=== PATIENT | male | born 1975 | race Caucasian/White ===

== ENCOUNTER 2017-12-05 21:16 | Inpatient (IN) | payer OTHER ==
[2017-12-05] MEDS ORDERED: SOD CHLORIDE 0.9% IVPB (22:30)
[2017-12-05] MEDS ORDERED: ALBUTEROL 0.083% (NEB) 2.5 MG/3 ML AMP HHN (22:30)
[2017-12-05] MEDS ORDERED: ONDANSETRON 4 MG INJ IV (22:30)
[2017-12-05] MEDS ORDERED: ACETAMINOPHEN 500 MG TAB PO (22:30)
[2017-12-05] MEDS ORDERED: IBUPROFEN 600 MG TAB PO (22:30)
[2017-12-05] MEDS ORDERED: CEFTRIAXONE IVPB (22:30)
[2017-12-05] MEDS ORDERED: traMADol 50 MG TAB PO (22:30)
[2017-12-06] MEDS: CEFTRIAXONE 1 GM/50 ML (PMX) 50 ML IVPB ×2 (00:04→23:30)
[2017-12-06] MEDS: GUAIFENESIN/DM 5ML CUP PO ×7 (00:04→21:52)
[2017-12-06] MEDS: ALBUTEROL 0.083% (NEB) 2.5 MG/3 ML AMP HHN ×6 (01:06→20:31)
[2017-12-06] MEDS: IPRATROPIUM (NEB) 0.5 MG/2.5 ML AMP HHN ×6 (01:06→20:31)
[2017-12-06] MEDS: PANTOPRAZOLE (EC) 40 MG TAB PO (05:57)
[2017-12-06 07:22] LABS: ADD MAN DIFF? NO
[2017-12-06 07:25] LABS: BASOPHILS % 0.1 % (0.0-2.0); HEMATOCRIT 37.3 % (42.0-52.0); HEMOGLOBIN 12.5 g/dl (14.0-18.0); LYMPHOCYTES # 0.9 10^3/ul (0.8-2.9); MEAN CORPUSCULAR HEMOGLOBIN 30.3 pg (29.0-33.0); MEAN CORPUSCULAR HGB CONC 33.5 g/dl (32.0-37.0); MEAN CORPUSCULAR VOLUME 90.5 fl (82.0-101.0); MEAN PLATELET VOLUME 12.9 fl (7.4-10.4); MONOCYTE # 0.6 10^3/ul (0.3-0.9); MONOCYTES % 3.8 % (0.0-11.0); NEUTROPHIL # 13.2 10^3/ul (1.6-7.5); NEUTROPHILS % 89.4 % (39.0-77.0); PLATELET COUNT 208 10^3/UL (140-415); RED BLOOD COUNT 4.12 10^6/ul (4.70-6.10); RED CELL DISTRIBUTION WIDTH 13.2 % (11.5-14.5)
[2017-12-06 07:25] LABS: WHITE BLOOD COUNT 14.8 10^3/ul (4.8-10.8)
[2017-12-06 07:51] LABS: ALANINE AMINOTRANSFERASE 45 IU/L (13-69); ALBUMIN 3.5 g/dl (3.3-4.9); ALBUMIN/GLOBULIN RATIO 1.12; ALKALINE PHOSPHATASE 77 IU/L (42-121); ANION GAP 14 (8-16); ASPARTATE AMINO TRANSFERASE 27 IU/L (15-46); BILIRUBIN,INDIRECT 0.2 mg/dl (0-1.1); BILIRUBIN,TOTAL 0.2 mg/dl (0.2-1.3); BLOOD UREA NITROGEN 18 mg/dl (7-20); CALCIUM 8.7 mg/dl (8.4-10.2); CARBON DIOXIDE 26 mmol/L (21-31); CHLORIDE 105 mmol/L (97-110); CREATININE 0.73 mg/dl (0.61-1.24); GLUCOSE 168 mg/dl (70-220); POTASSIUM 3.7 mmol/L (3.5-5.1); SODIUM 141 mmol/L (135-144); TOTAL PROTEIN 6.6 g/dl (6.1-8.1)
[2017-12-06] MEDS: ASPIRIN 81 MG TAB PO (08:21)
[2017-12-06] MEDS: METHYLPREDNISOLONE 40 MG INJ IV ×2 (08:21→21:52)
[2017-12-07] MEDS: ALBUTEROL 0.083% (NEB) 2.5 MG/3 ML AMP HHN ×5 (00:30→17:19)
[2017-12-07] MEDS: IPRATROPIUM (NEB) 0.5 MG/2.5 ML AMP HHN ×5 (00:30→17:19)
[2017-12-07] MEDS: GUAIFENESIN/DM 5ML CUP PO ×4 (02:30→13:45)
[2017-12-07] MEDS: PANTOPRAZOLE (EC) 40 MG TAB PO (06:12)
[2017-12-07 07:01] LABS: ADD MAN DIFF? NO
[2017-12-07 07:06] LABS: WHITE BLOOD COUNT 7.8 10^3/ul (4.8-10.8)
[2017-12-07 07:06] LABS: BASOPHILS % 0.1 % (0.0-2.0); HEMATOCRIT 36.9 % (42.0-52.0); HEMOGLOBIN 12.5 g/dl (14.0-18.0); LYMPHOCYTES # 0.8 10^3/ul (0.8-2.9); LYMPHOCYTES % 10.7 % (15.0-51.0); MEAN CORPUSCULAR HEMOGLOBIN 30.9 pg (29.0-33.0); MEAN CORPUSCULAR HGB CONC 33.9 g/dl (32.0-37.0); MEAN CORPUSCULAR VOLUME 91.1 fl (82.0-101.0); MEAN PLATELET VOLUME 12.2 fl (7.4-10.4); MONOCYTE # 0.4 10^3/ul (0.3-0.9); MONOCYTES % 4.9 % (0.0-11.0); NEUTROPHIL # 6.5 10^3/ul (1.6-7.5); NEUTROPHILS % 83.1 % (39.0-77.0); NUCLEATED RED BLOOD CELLS% 0.3 /100WBC (0.0-0.0); PLATELET COUNT 250 10^3/UL (140-415); RED BLOOD COUNT 4.05 10^6/ul (4.70-6.10); RED CELL DISTRIBUTION WIDTH 13.2 % (11.5-14.5)
[2017-12-07 07:29] LABS: HEMOGLOBIN A1C 5.6 % (0-5.9)
[2017-12-07 07:39] LABS: ANION GAP 13 (8-16); BLOOD UREA NITROGEN 18 mg/dl (7-20); CALCIUM 8.6 mg/dl (8.4-10.2); CARBON DIOXIDE 27 mmol/L (21-31); CHLORIDE 104 mmol/L (97-110); CREATININE 0.69 mg/dl (0.61-1.24); GLUCOSE 161 mg/dl (70-220); POTASSIUM 4.2 mmol/L (3.5-5.1); SODIUM 140 mmol/L (135-144)
[2017-12-07] MEDS: METHYLPREDNISOLONE 40 MG INJ IV (08:52)
[2017-12-07] MEDS: ASPIRIN 81 MG TAB PO (08:53)
== END 2017-12-07 18:57 | disposition home or self-care (01) | DRG 195 ==
LOC: TEL 21:16
DX: J18.9 Pneumonia, unspecified organism (principal); E66.9 Obesity, unspecified; Z68.30 Body mass index [BMI] 30.0-30.9, adult; R73.9 Hyperglycemia, unspecified; R10.9 Unspecified abdominal pain
CPT/HCPCS: 71046; 80048; 80053; 83036; 85025; 87081; 94640; 94664

== ENCOUNTER 2018-04-15 09:41 | Day surgery (SDC) | payer OTHER ==
[2018-04-15 10:26] LABS: ADD MAN DIFF? NO
[2018-04-15 10:31] LABS: WHITE BLOOD COUNT 6.2 10^3/ul (4.8-10.8)
[2018-04-15 10:31] LABS: BASOPHILS % 0.2 % (0.0-2.0); EOSINOPHILS # 0.1 10^3/ul (0.0-0.5); EOSINOPHILS % 1.3 % (0.0-7.0); HEMATOCRIT 47.1 % (42.0-52.0); HEMOGLOBIN 16.4 g/dl (14.0-18.0); LYMPHOCYTES # 2.5 10^3/ul (0.8-2.9); MEAN CORPUSCULAR HEMOGLOBIN 30.8 pg (29.0-33.0); MEAN CORPUSCULAR HGB CONC 34.8 g/dl (32.0-37.0); MEAN CORPUSCULAR VOLUME 88.4 fl (82.0-101.0); MEAN PLATELET VOLUME 11.3 fl (7.4-10.4); MONOCYTE # 0.5 10^3/ul (0.3-0.9); MONOCYTES % 7.7 % (0.0-11.0); NEUTROPHIL # 3.2 10^3/ul (1.6-7.5); NEUTROPHILS % 50.6 % (39.0-77.0); PLATELET COUNT 279 10^3/UL (140-415); RED BLOOD COUNT 5.33 10^6/ul (4.70-6.10); RED CELL DISTRIBUTION WIDTH 12.1 % (11.5-14.5)
[2018-04-15] MEDS: SOD CHLORIDE 0.9% 1,000 ML IV (10:42)
[2018-04-15 10:54] LABS: ANION GAP 12 (8-16); BLOOD UREA NITROGEN 11 mg/dl (7-20); CARBON DIOXIDE 27 mmol/L (21-31); CHLORIDE 107 mmol/L (97-110); CREATININE 0.78 mg/dl (0.61-1.24); GLUCOSE 103 mg/dl (70-220); POTASSIUM 4.3 mmol/L (3.5-5.1); SODIUM 142 mmol/L (135-144)
[2018-04-15 11:03] LABS: INR 0.95; PROTIME 12.8 Sec (11.9-14.9)
[2018-04-15 11:04] LABS: PARTIAL THROMBOPLASTIN TIME 25.1 Sec (25.0-35.0)
[2018-04-15] MEDS ORDERED: VERAPAMIL 5 MG INJ (13:25)
[2018-04-15] MEDS ORDERED: MIDAZOLAM 1 MG/ML 2 ML INJ (13:25)
[2018-04-15] MEDS ORDERED: IODIXANOL LOCM 100 ML BTL ×3 (13:25→13:32)
[2018-04-15] MEDS ORDERED: FENTAnyl 50 MCG/ML VIAL (13:25)
[2018-04-15] MEDS ORDERED: LIDOCAINE 1% (MDV) 20 ML INJ (13:25)
[2018-04-15] MEDS ORDERED: NITROGLYCERIN (IC) 100 MCG/ML INJ (13:26)
[2018-04-15] MEDS ORDERED: HEPARIN 1000 UNITS/ML 10 ML INJ (13:26)
[2018-04-15] MEDS ORDERED: ASPIRIN 325 MG TAB (14:20)
[2018-04-15] MEDS ORDERED: CLOPIDOGREL 300 MG TAB (14:20)
[2018-04-15] MEDS ORDERED: ACETAMINOPHEN 325 MG TAB PO (15:00)
[2018-04-15] MEDS ORDERED: AL HYDROX/MG HYDROX/SIMETH 30 ML CUP PO (15:00)
[2018-04-15] MEDS ORDERED: OXYCODONE/ACETAMINOPHEN (5/325) TAB PO (15:00)
[2018-04-15] MEDS ORDERED: ONDANSETRON 4 MG INJ IV (15:00)
[2018-04-16] MEDS ORDERED: CLOPIDOGREL 75 MG TAB PO (09:00)
[2018-04-16] MEDS ORDERED: ASPIRIN (EC) 81 MG TAB PO (09:00)
== END 2018-04-15 22:30 | disposition home or self-care (01) ==
LOC: CCL 09:41 → SDS 09:41 → TEL 15:15 → CCL 22:30
DX: I25.10 Atherosclerotic heart disease of native coronary artery without angina pectoris (principal); R94.39 Abnormal result of other cardiovascular function study; I10 Essential (primary) hypertension; E78.00 Pure hypercholesterolemia, unspecified
CPT/HCPCS: 80048; 85025; 85610; 85730; 93005; 93458